=== PATIENT | female | born 1985 | race African-American/Black ===

== ENCOUNTER 2017-07-28 08:50 | Day surgery (SDC) | payer MEDICAID ==
[~2017-07-28] VITALS: Ht 165.1 cm; Wt 94.0 kg
[~2017-07-28 08:50] MED LIST: CEPH500C2 PO; CLIN150C14 PO; PNV1TABL76 PO
[2017-07-28] MEDS ORDERED: SODIUM CHLORIDE 0.9% 1,000 ML IV ONE (09:19)
[2017-07-28] MEDS ORDERED: ONDANSETRON HCL 4MG/2ML VIAL ONE (09:25)
[2017-07-28] MEDS ORDERED: MORPHINE SULFATE 4 MG/ML CPJ (NOT FOR IM USE) IV ONE ×3 (09:25→10:45)
[2017-07-28] MEDS ORDERED: ONDANSETRON HCL 4MG/2ML VIAL IV ONE (09:30)
[2017-07-28 09:50] LABS: BASOPHILS % 0.5 % (0.0-2.0); EOSINOPHILS % 0.5 % (0.0-5.0); HEMATOCRIT. 32.4 % (36.0-48.0); HEMOGLOBIN. 11.1 g/dL (12.0-16.0); MEAN CORPUSCULAR HEMOGLOBIN 30.9 pg (28.0-32.0); MEAN CORPUSCULAR VOLUME 90.1 fL (81.0-99.0); MEAN PLATELET VOLUME 8.2 fl (7.4-10.4); MONOCYTES % 7.3 % (2.0-8.0); NEUTROPHILS % 61.7 % (40.0-76.0); PLATELET 183 x1000/uL (130-400); RED CELL DISTRIBUTION WIDTH 13.6 % (11.6-14.6)
[2017-07-28 09:59] LABS: CHLORIDE 111 mEq/L (98-107)
[2017-07-28 10:03] LABS: B-HCG QUANTITATIVE 853 mIU/mL (<3)
[2017-07-28 10:39] LABS: CLARITY URINE CLOUDY (CLEAR); COLOR URINE ORANGE (YELLOW); KETONES URINE NEGATIVE (NEGATIVE); LEUKOCYTE ESTERASE URINE NEGATIVE (NEGATIVE); NITRITE URINE NEGATIVE (NEGATIVE); OCCULT BLOOD URINE 3+ (NEGATIVE); PROTEIN URINE 1+ (NEGATIVE); SPECIFIC GRAVITY URINE 1.025 (1.005-1.030)
[2017-07-28 11:06] LABS: *BARBITURATES SCREEN URINE NEGATIVE (NEGATIVE); *BENZODIAZEPINES SCREEN URINE NEGATIVE (NEGATIVE); *COCAINE SCREEN URINE NEGATIVE (NEGATIVE); METHADONE URINE SCREEN NEGATIVE (NEGATIVE); OPIATES URINE SCREEN NEGATIVE (NEGATIVE); PHENCYCLIDINE URINE SCREEN NEGATIVE (NEGATIVE)
[2017-07-28 11:13] LABS: *AMPHETAMINES SCREEN URINE NEGATIVE (NEGATIVE)
[2017-07-28 11:23] LABS: CANNABINOID URINE SCREEN PRESUMTIVE POSITIVE (NEGATIVE)
[2017-07-28 15:30] VITALS: BP 123/66
[2017-07-28] MEDS ORDERED: PROPOFOL 200MG/20ML VIAL IV ONE (15:57)
[2017-07-28] MEDS ORDERED: MIDAZOLAM HCL 2 MG/2 ML VIAL ONE (15:58)
[2017-07-28] MEDS ORDERED: FENTANYL CITRATE/PF 50MCG/ML 2ML VIAL ONE (15:58)
[2017-07-28] MEDS ORDERED: LIDOCAINE HCL/PF 1% 10 MG/ML 5ML VIAL ONE (15:58)
[2017-07-28] MEDS ORDERED: ONDANSETRON HCL 4MG/2ML VIAL IV PRN ×2 (16:00→18:00)
[2017-07-28] MEDS ORDERED: FENTANYL CITRATE/PF 50MCG/ML 2ML VIAL IV PRN (16:00)
[2017-07-28] MEDS ORDERED: HYDROMORPHONE HCL/PF 2MG/ML CPJ IV PRN (16:00)
[2017-07-28] MEDS ORDERED: METRONIDAZOLE 500 MG PREMIX 100 ML IV ONE (16:47)
[2017-07-28] MEDS ORDERED: DEXT 5%/0.45% NACL KCL 20MEQ/L 1,000 ML IV SCH (17:48)
== END 2017-07-28 16:30 | disposition home or self-care (01) ==
LOC: ER 09:05 → OR 11:00 → ER 15:30 → OR 16:30 → ENRESERV 19:39 → CANRESERV 19:39 → CANBEDREQ 07-29 06:54
PROVIDERS: ATTEND Specialist
DX: O03.4 Incomplete spontaneous abortion without complication (principal); O02.89 Other abnormal products of conception; J45.909 Unspecified asthma, uncomplicated; Z98.890 Other specified postprocedural states; F31.89 Other bipolar disorder; F12.10 Cannabis abuse, uncomplicated; F17.210 Nicotine dependence, cigarettes, uncomplicated; F32.89 Other specified depressive episodes; Z79.899 Other long term (current) drug therapy
CPT/HCPCS: 36415; 59812; 74181; 76705; 76801; 76817; 80053; 80305; 81003; 81025; 84702; 85025; 88305; 96361; 96374; 96375; 96376; 99291; J2250; J2270; J2405; J3010; J3490; J7030; J2704

== ENCOUNTER 2024-06-20 17:09 | Emergency (ER) | payer MEDICAID ==
[~2024-06-20] VITALS: Ht 162.6 cm; Wt 81.0 kg
[2024-06-20 17:11] VITALS: O2SAT 98
[2024-06-20 17:15] VITALS: BP 137/91; PULSE 104; RESP 16; TEMP 37.2; O2SAT 100
[2024-06-21] MEDS: ACETAMINOPHEN 325MG TABLET PO NR (01:44)
== END 2024-06-21 01:49 | disposition home or self-care (01) ==
LOC: ER 17:21
DX: S00.83XA Contusion of other part of head, initial encounter (principal); J45.909 Unspecified asthma, uncomplicated; Z98.890 Other specified postprocedural states; W10.9XXA Fall (on) (from) unspecified stairs and steps, initial encounter; Y93.89 Activity, other specified; Y92.89 Other specified places as the place of occurrence of the external cause; Y99.8 Other external cause status
CPT/HCPCS: 70486; 99284